=== PATIENT | female | born 1965 | race Caucasian/White ===

== ENCOUNTER 2024-01-31 07:28 | Day surgery (SDC) | payer BC ==
[~2024-01-31] VITALS: Ht 171.4 cm; Wt 118.2 kg
[2024-01-31] MEDS ORDERED: LEVO75CA5 PO (07:44)
[2024-01-31] MEDS ORDERED: LISI40TA13 PO (07:44)
[2024-01-31] MEDS ORDERED: ATOR20TA PO (07:44)
[2024-01-31 07:48] VITALS: BP 144/88; PULSE 56; RESP 16
[2024-01-31] MEDS ORDERED: simethicone 40mg/0.6ml oral drops 30ml PO ONE (08:15)
[2024-01-31] MEDS ORDERED: fentaNYL/PF 50MCG/1 ML 2ML syringe IV PRN ×2 (08:15→09:00)
[2024-01-31] MEDS ORDERED: normal saline 1000ml 1,000 ML IV ONE (08:15)
[2024-01-31] MEDS ORDERED: MIDAZolam 1 MG/ML 5ML VIAL IV PRN (08:15)
[2024-01-31] MEDS ORDERED: diphenhydrAMINE 50 mg/ml inj IV PRN (08:25)
[2024-01-31 09:45] VITALS: BP 138/69; PULSE 52; RESP 12; O2SAT 99
[2024-01-31 09:55] VITALS: BP 150/82; PULSE 51; RESP 18; O2SAT 99
[2024-01-31 10:05] VITALS: BP 130/74; PULSE 50; RESP 18; O2SAT 97
[2024-01-31 10:15] VITALS: BP 125/72; PULSE 48; RESP 15; O2SAT 98
== END 2024-01-31 10:20 | disposition home or self-care (01) ==
LOC: GI LAB 07:28
PROVIDERS: ATTEND Internal Medicine Gastroenterology
DX: Z12.11 Encounter for screening for malignant neoplasm of colon (principal); K62.1 Rectal polyp; K63.5 Polyp of colon; K57.30 Diverticulosis of large intestine without perforation or abscess without bleeding; I10 Essential (primary) hypertension
CPT/HCPCS: 45385; 99152; J1200; J2250; J3010; J7030; Z7512; 99153; A4620; C1889